=== PATIENT | female | born 1955 | race Caucasian/White ===

== ENCOUNTER → 2020-05-04 10:59 | Outpatient (CLI) | payer MEDICARE, SELFPAY ==
[2020-05-04 12:08] LABS: Add Manual Diff / Slide Review NO; Basophils Absolute Auto 0 /uL (0-100); Basophils Percent Auto 0.6 % (0-2); Eosinophils Absolute Auto 100 /uL (0-450); Eosinophils Percent Auto 1.7 % (2-4); Hematocrit 37.4 % (36-46); Hemoglobin 12.6 g/dL (12.0-16.0); Lymphocytes Absolute Auto 1600 /uL (1100-4500); Lymphocytes Percent Auto 38.6 % (25-40); Mean Corpuscular HGB Conc 33.6 % (30-36); Mean Corpuscular Hemoglobin 30.5 PG (26-34); Monocytes Absolute Auto 400 /uL (0-900); Neutrophils Absolute Auto 2100 /uL (1500-7000); Neutrophils Percent Auto 49.1 % (50-75); Platelet Count 277 X10^3/uL (150-400); Red Blood Cell Count 4.11 X10^6/uL (4.0-5.2); Red Cell Distribution Width 12.8 % (11.6-14.8); White Blood Cell Count 4.3 X10^3/uL (4.5-11.0)
[2020-05-04 13:04] LABS: Alanine Aminotransferase 18 IU/L (<35); Albumin 4.3 g/dL (3.5-5.0); Albumin Globulin Ratio 1.5 (1.0-2.8); Alkaline Phosphatase 57 U/L (38-126); Aspartate Aminotransferase 28 IU/L (14-36); BUN Creatinine Ratio 20.8 (6-22); Bilirubin Total 0.5 mg/dL (0.2-1.3); Blood Urea Nitrogen 15 mg/dL (7-17); Calcium 9.9 mg/dL (8.4-10.2); Carbon Dioxide 31 mmol/L (22-32); Chloride 100 mmol/L (98-107); Cholesterol 220 mg/dL (140-199); Estimated Glomerular Filt Rate > 60.0 mL/min (>60); Globulin 2.8 g/dL (1.7-4.1); Glucose 86 mg/dL (80-110); HDL Cholesterol 87 mg/dL (40-60); HEMOLYSIS < 15 (0-50); LDL Cholesterol Calculated 117 mg/dL (<100); Potassium 4.6 mmol/L (3.4-5.1); Sodium 136 mmol/L (137-145); Total Protein 7.1 g/dL (6.3-8.2); Triglycerides 80 mg/dL (35-150)
[2020-05-04 13:35] LABS: TSH w/ Reflex to FT4 0.11 uIU/mL (0.47-4.68)
[2020-05-04 14:23] LABS: Free T4, Direct Thyroxine 1.13 ng/dL (0.78-2.19)
== END ==
PROVIDERS: PCP Registered Nurse Diabetes Educator; Referring Provider Registered Nurse Diabetes Educator; Visit Provider Registered Nurse Diabetes Educator
DX: Z00.00 Encounter for general adult medical examination without abnormal findings (principal)
CPT/HCPCS: 36415; 80053; 80061; 84439; 84443; 85025

== ENCOUNTER → 2021-02-14 15:07 | Outpatient (CLI) | payer MEDICARE, SELFPAY ==
--- NOTE | 2021-02-14 15:12 | DI.RAD.S_ITS ---
PROCEDURE: XR HIP W PEL IF DONE LT 2V INDICATIONS: eval chronic l hip pain TECHNIQUE: AP pelvis with lateral view(s) of the left hip(s). COMPARISON: None. FINDINGS: Bones: No fractures or dislocations. Very slight left femoroacetabular marginal spurring. Mild spurring inferiorly at both sacroiliac joints. Pelvic ring appears intact. No suspicious bony lesions. Soft tissues: The visualized bowel gas pattern is normal. There is increased quantity of solid stool present. No suspicious soft tissue calcifications. IMPRESSION: 1. Minor left hip degeneration. 2. Mild bilateral sacroiliac joint degeneration. Dictated by: Tashia Tatum M.D. on 02/14/2021 at 16:06 Approved by: Tashia Tatum M.D. on 02/14/2021 at 16:08
== END ==
PROVIDERS: PCP Registered Nurse Diabetes Educator; Referring Provider Registered Nurse Diabetes Educator; Visit Provider Registered Nurse Diabetes Educator
DX: M25.552 Pain in left hip (principal); M46.1 Sacroiliitis, not elsewhere classified
CPT/HCPCS: 73502

== ENCOUNTER → 2021-09-03 12:01 | Outpatient (CLI) | payer MEDICARE, SELFPAY ==
--- NOTE | 2021-09-03 12:04 | DI.RAD.S_ITS ---
PROCEDURE: XR LUMBAR SPINE 2-3V INDICATIONS: eval LBP with LLE radiculopathy TECHNIQUE: 3 views of the lumbar spine were acquired. COMPARISON: None. FINDINGS: Bones: 5 [id number] vertebrae are present. There is mild levoscoliosis centered at L3-4 level. Minimal anterolisthesis of L4 on L5 is seen. Degenerative endplate changes and bilateral facet arthrosis at L3-4 through L5-S1 levels are seen. No vertebral body compression fractures. No suspicious bony lesions. Soft tissues: Overlying bowel gas pattern is normal. No suspicious soft tissue calcifications. IMPRESSION: Mild scoliosis and minimal anterolisthesis of L4 on L5. No acute compression fracture. Degenerative disc disease throughout mid to lower lumbar spine. Dictated by: Robert Coffey M.D. on 09/03/2021 at 15:46 Approved by: Robert Coffey M.D. on 09/03/2021 at 15:47
--- NOTE | 2021-09-03 12:04 | DI.RAD.S_ITS ---
PROCEDURE: XR CERVICAL SPINE 2V OR 3V INDICATIONS: chronic C-spine disease TECHNIQUE: 3 view(s) of the cervical spine were acquired. COMPARISON: None. FINDINGS: Bones: No fractures or dislocations to the T1 level. The lateral masses of C1 appear intact on the odontoid view. Grade 1/2 anterolisthesis at C3-4. Moderate to advanced disc height loss at C4 -7 with prominent bridging anterior endplate osteophytes. Straightening, which may be due to spasm or positioning. Uncovertebral/facet arthrosis, most prominent at C2-3. Soft tissues: No prevertebral soft tissue swelling. IMPRESSION: Cervical spine degeneration as detailed above. Dictated by: Tolu Lynch M.D. on 09/03/2021 at 16:32 Approved by: Tolu Lynch M.D. on 09/03/2021 at 16:35
== END ==
PROVIDERS: PCP Registered Nurse Diabetes Educator; Referring Provider Registered Nurse Diabetes Educator; Visit Provider Registered Nurse Diabetes Educator
DX: M51.16 Intervertebral disc disorders with radiculopathy, lumbar region (principal); M51.17 Intervertebral disc disorders with radiculopathy, lumbosacral region; M47.812 Spondylosis without myelopathy or radiculopathy, cervical region; M41.9 Scoliosis, unspecified
CPT/HCPCS: 72040; 72100

== ENCOUNTER → 2021-10-09 10:32 | Outpatient (CLI) | payer MEDICARE, SELFPAY ==
--- NOTE | 2021-10-09 10:35 | DI.RAD.S_ITS ---
PROCEDURE: XR DEXA AXIAL SKELETON INDICATIONS: reeval osteoporosis COMPARISON: None. FINDINGS: This blank DEXA report has been sent in error by the PACS system. The correct and complete report will be forthcoming in 1-2 days. Thank you for your patience and understanding. Dictated by: Buffy Peralta MD, PhD on 10/09/2021 at 13:39 Approved by: Buffy Peralta MD, PhD on 10/09/2021 at 13:39
== END ==
PROVIDERS: PCP Registered Nurse Diabetes Educator; Referring Provider Registered Nurse Diabetes Educator; Visit Provider Registered Nurse Diabetes Educator
DX: Z13.820 Encounter for screening for osteoporosis (principal); Z78.0 Asymptomatic menopausal state; M85.89 Other specified disorders of bone density and structure, multiple sites
CPT/HCPCS: 77080

== ENCOUNTER → 2023-01-24 | Outpatient (CLI) | payer MEDICARE, SELFPAY ==
--- NOTE | 2023-01-24 10:22 | DI.RAD.S_ITS ---
Bone Density Report Name: SANIA RED Age: 67 Sex: Female Ethnicity: White Date of : 1955 Indication: osteopenia; parental hip fracture; Referring Provider: OLGA HELTON Study: Bone densitometry was performed. Exam Date: January 24, 2023 Accession number: [id number] Bone Density: Region BMD T-score Z-score Classification AP Spine(L1, L2) 1.006 0.2 2.2 Normal Femoral Neck (Left) 0.673 -1.6 0.1 Osteopenia Total Hip (Left) 0.717 -1.8 -0.4 Osteopenia Femoral Neck (Right) 0.690 -1.4 0.3 Osteopenia Total Hip (Right) 0.677 -2.2 -0.7 Osteopenia Total Hip Mean 0.697 -2.0 -0.6 Osteopenia World Health Organization criteria for BMD impression classify patients as: Normal (T-score at or above -1.0), Osteopenia (T-score between -1.0 and -2.5), or Osteoporosis (T-score at or below -2.5). 10-year Fracture Risk(1): Major Osteoporotic Fracture 14% Hip Fracture 2.3% Reported Risk Factors: [place] (), Neck BMD=0.673, BMI=19.7, parental fracture (1) FRAX(R) Version 3.08. Fracture probability calculated for an untreated patient. Fracture probability may be lower if the patient has received treatment. Previous Exams: -- Region Exam Age BMD T-score BMD Change BMD Change Date g/cm2 vs Baseline vs Previous -- AP Spine (L1-L2) 01/24/2023 67 1.006 0.2 -0.005 (-0.5%) -0.005 (-0.5%) 10/09/2021 66 1.011 0.3 Total Hip(Left) 01/24/2023 67 0.717 -1.8 -0.035 (-4.6%)* -0.035 (-4.6%)* 10/09/2021 66 0.751 -1.6 Total Hip(Right) 01/24/2023 67 0.677 -2.2 0.011 (1.7%) 0.011 (1.7%) 10/09/2021 66 0.666 -2.3 -- *Denotes significance at 95% confidence level, LSC for AP Spine = 0.022 g/cm2, LSC for Total Hip = 0.027 g/cm2 Impression: The patient has low bone mass, based on the Right Total Hip T-score. The patient has an estimated ten-year risk of hip fracture of 2.3% and an estimated ten-year risk of major fracture of 14%, based on the WHO FRAX algorithm. The patient has risk factors, including: parental hip fracture. The BMD for the Total Hip(Left) decreased, changing by -4.6% since the last DXA exam. Discussion: BONE DENSITY IS LOW AT ONE OR MORE SKELETAL SITES. This patient's lowest T-score is low at one or more skeletal sites. It meets the World Health Organization's (WHO) criteria for low bone mass (T-score between -1.0 and -2.5). The patient's 10-year risk of fracture as calculated by FRAX is less than the threshold where pharmacological therapy is recommended by the National Osteoporosis Foundation (NOF). However, all treatment decisions require clinical judgment and consideration of individual patient factors, including patient preferences, comorbidities, previous drug use, risk factors not captured in the FRAX model (e.g., frailty, falls, vitamin D deficiency, increased bone turnover, interval significant decline in bone density) and possible under or overestimation of fracture risk by FRAX. The patient should follow a healthful lifestyle (good nutrition with adequate calcium and vitamin D, and appropriate weight-bearing exercise). Follow-Up: Consider repeating this study in 2 years to reassess this patient's status, or sooner if there is some new clinical indication. Reported by: ARELY DAMON M.D. on 01/24/2023 11:02:00 AM.
[2023-01-24 12:20] LABS: Alanine Aminotransferase 18 IU/L (<35); Albumin 4.3 g/dL (3.5-5.0); Albumin Globulin Ratio 1.6 (1.0-2.8); Alkaline Phosphatase 61 U/L (38-126); Aspartate Aminotransferase 26 IU/L (14-36); BUN Creatinine Ratio 17.1 (6-22); Bilirubin Total 0.8 mg/dL (0.2-1.3); Blood Urea Nitrogen 13 mg/dL (7-17); Calcium 9.6 mg/dL (8.4-10.2); Carbon Dioxide 31 mmol/L (22-32); Chloride 99 mmol/L (98-107); Cholesterol 255 mg/dL (140-199); Estimated Glomerular Filt Rate > 60 mL/min (>60); Globulin 2.7 g/dL (1.7-4.1); Glucose 83 mg/dL (80-110); HDL Cholesterol 93 mg/dL (40-60); HEMOLYSIS < 15 (0-50); LDL Cholesterol Calculated 145 mg/dL (<100); Potassium 4.6 mmol/L (3.4-5.1); Sodium 134 mmol/L (137-145); Triglycerides 87 mg/dL (35-150)
[2023-01-24 12:55] LABS: TSH w/ Reflex to FT4 0.02 uIU/mL (0.47-4.68)
[2023-01-24 13:26] LABS: Free T4, Direct Thyroxine 1.11 ng/dL (0.78-2.19)
== END ==
LOC: RAD 10:21
PROVIDERS: PCP Registered Nurse Diabetes Educator; Referring Provider Registered Nurse Diabetes Educator; Visit Provider Registered Nurse Diabetes Educator
DX: M85.851 Other specified disorders of bone density and structure, right thigh (principal); R79.89 Other specified abnormal findings of blood chemistry; Z51.81 Encounter for therapeutic drug level monitoring; Z79.83 Long term (current) use of bisphosphonates; Z90.710 Acquired absence of both cervix and uterus
CPT/HCPCS: 36415; 77080; 80053; 80061; 84439; 84443

== ENCOUNTER → 2023-11-18 10:58 | Outpatient (CLI) | payer MEDICARE, SELFPAY ==
[2023-11-18 12:34] LABS: Alanine Aminotransferase 17 IU/L (<35); Albumin 4.6 g/dL (3.5-5.0); Albumin Globulin Ratio 1.7 (1.0-2.8); Alkaline Phosphatase 60 U/L (38-126); Aspartate Aminotransferase 28 IU/L (14-36); BUN Creatinine Ratio 19.2 (6-22); Bilirubin Total 0.7 mg/dL (0.2-1.3); Blood Urea Nitrogen 14 mg/dL (7-17); Calcium 9.7 mg/dL (8.4-10.2); Carbon Dioxide 31 mmol/L (22-32); Chloride 103 mmol/L (98-107); Cholesterol 247 mg/dL (140-199); Estimated Glomerular Filt Rate > 60 mL/min (>60); Globulin 2.7 g/dL (1.7-4.1); Glucose 81 mg/dL (80-110); HDL Cholesterol 84 mg/dL (40-60); HEMOLYSIS < 15 (0-50); LDL Cholesterol Calculated 145 mg/dL (<100); Potassium 3.9 mmol/L (3.4-5.1); Sodium 137 mmol/L (137-145); Total Protein 7.3 g/dL (6.3-8.2); Triglycerides 89 mg/dL (35-150)
[2023-11-18 12:45] LABS: Free T4, Direct Thyroxine 1.14 ng/dL (0.78-2.19)
[2023-11-18 12:59] LABS: Thyroid Stimulating Hormone 1.15 uIU/mL (0.47-4.68)
== END ==
PROVIDERS: PCP Registered Nurse Diabetes Educator; Referring Provider Registered Nurse Diabetes Educator; Visit Provider Registered Nurse Diabetes Educator
DX: R79.89 Other specified abnormal findings of blood chemistry (principal); E78.5 Hyperlipidemia, unspecified
CPT/HCPCS: 36415; 80053; 80061; 84439; 84443; 84480

== ENCOUNTER → 2024-02-23 11:02 | Outpatient (CLI) | payer MEDICARE, SELFPAY ==
--- NOTE | 2024-02-23 11:03 | DI.MG.S_ITS ---
BILATERAL DIGITAL SCREENING MAMMOGRAM 3D/2D WITH CAD: 02/23/2024 CLINICAL: Routine screening. Comparison is made to exams dated: 01/01/2023 mammogram, 10/10/2021 mammogram, and 06/06/2020 mammogram - [facility]. Both breasts are heterogeneously dense, which may obscure small masses (category c / 51-75% glandular tissue). Current study was also evaluated with a Computer Aided Detection (CAD) system. No significant masses, calcifications, or other findings are seen in either breast. There has been no significant interval change. IMPRESSION: NEGATIVE There is no mammographic evidence of malignancy. A 1 year screening mammogram is recommended. Based on the Tyrer Cuzick model (a risk assessment model) the patient's lifetime risk is 6.1% and her 10 year risk is 3.9%. According to the ACR, ACS, and NCCN guidelines, an annual breast MRI exam along with mammogram is recommended if the patient's lifetime risk is 20% or greater. This exam was interpreted at Station ID: [id number]. NOTE: For mammograms, a report in lay terms will be sent to the patient. Approximately 15% of breast malignancies will not be visualized mammographically. In the management of a palpable breast mass, a negative mammogram must not discourage biopsy of a clinically suspicious lesion. Electronically Signed By: Cam goodman/ole:02/23/2024 14:27:09 letter sent: Normal Exam ACR BI-RADS Category 1: Negative [id number]
== END ==
PROVIDERS: PCP Registered Nurse Diabetes Educator; Referring Provider Registered Nurse Diabetes Educator; Visit Provider Registered Nurse Diabetes Educator
DX: Z12.31 Encounter for screening mammogram for malignant neoplasm of breast (principal); R92.333 Mammographic heterogeneous density, bilateral breasts
CPT/HCPCS: 77063; 77067

== ENCOUNTER → 2024-05-26 15:40 | Outpatient (CLI) | payer MEDICARE, SELFPAY ==
--- NOTE | 2024-05-26 15:42 | DI.RAD.S_ITS ---
PROCEDURE: XR KNEE LT 3V INDICATIONS: pain and swelilng x 1.5 week, knee buckled TECHNIQUE: 3 views of the knee were acquired. COMPARISON: None. FINDINGS: Bones: No fractures or dislocations. Mild tricompartmental osteoarthritis is seen more notably in medial femoral tibial compartment. No significant patellar subluxation. No suspicious bony lesions. Soft tissues: Small to moderate joint effusion. No suspicious soft tissue calcifications. IMPRESSION: No acute left knee fracture or dislocation. Mild tricompartmental osteoarthritis. Small to moderate joint effusion. Dictated by: Robert Coffey M.D. on 05/26/2024 at 17:10 Approved by: Robert Coffey M.D. on 05/26/2024 at 17:11
== END ==
PROVIDERS: PCP Registered Nurse Diabetes Educator; Referring Provider Physician Assistant; Visit Provider Physician Assistant
DX: M17.12 Unilateral primary osteoarthritis, left knee (principal); S86.919A Strain of unspecified muscle(s) and tendon(s) at lower leg level, unspecified leg, initial encounter; M25.462 Effusion, left knee; X58.XXXA Exposure to other specified factors, initial encounter
CPT/HCPCS: 73562

== ENCOUNTER → 2024-11-29 10:35 | Outpatient (CLI) | payer MEDICARE, SELFPAY ==
[2024-11-29 11:54] LABS: Alanine Aminotransferase 19 IU/L (<35); Albumin 4.8 g/dL (3.5-5.0); Albumin Globulin Ratio 2.1 (1.0-2.8); Alkaline Phosphatase 68 U/L (38-126); Aspartate Aminotransferase 30 IU/L (14-36); BUN Creatinine Ratio 17.1 (6-22); Bilirubin Total 0.6 mg/dL (0.2-1.3); Blood Urea Nitrogen 13 mg/dL (7-17); Carbon Dioxide 28 mmol/L (22-32); Chloride 100 mmol/L (98-107); Cholesterol 267 mg/dL (140-199); Estimated Glomerular Filt Rate > 60 mL/min (>60); Globulin 2.3 g/dL (1.7-4.1); Glucose 86 mg/dL (70-99); HDL Cholesterol 95 mg/dL (40-60); HEMOLYSIS < 15 (0-50); LDL Cholesterol Calculated 151 mg/dL (<100); Potassium 4.6 mmol/L (3.4-5.1); Sodium 134 mmol/L (137-145); Total Protein 7.1 g/dL (6.3-8.2); Triglycerides 103 mg/dL (35-150)
[2024-11-29 12:09] LABS: Free T4, Direct Thyroxine 1.11 ng/dL (0.78-2.19)
[2024-11-29 12:23] LABS: Thyroid Stimulating Hormone 1.24 uIU/mL (0.47-4.68)
== END ==
PROVIDERS: PCP Registered Nurse Diabetes Educator; Referring Provider Registered Nurse Diabetes Educator; Visit Provider Registered Nurse Diabetes Educator
DX: E78.5 Hyperlipidemia, unspecified (principal); R79.89 Other specified abnormal findings of blood chemistry; M81.0 Age-related osteoporosis without current pathological fracture
CPT/HCPCS: 36415; 80053; 80061; 84439; 84443; 84481

== ENCOUNTER → 2025-03-29 11:31 | Outpatient (CLI) | payer MEDICARE, SELFPAY ==
[2025-03-29 12:32] LABS: Cholesterol 191 mg/dL (140-199); HDL Cholesterol 101 mg/dL (40-60); Triglycerides 65 mg/dL (35-150)
== END ==
PROVIDERS: PCP Registered Nurse Diabetes Educator; Referring Provider Registered Nurse Diabetes Educator; Visit Provider Registered Nurse Diabetes Educator
DX: E78.5 Hyperlipidemia, unspecified (principal)
CPT/HCPCS: 36415; 80061

== ENCOUNTER → 2025-03-30 12:10 | Outpatient (CLI) | payer MEDICARE, SELFPAY ==
--- NOTE | 2025-03-30 12:11 | DI.RAD.S_ITS ---
PROCEDURE: XR DEXA AXIAL SKELETON INDICATIONS: Re eval COMPARISON: [facility], CR, XR DEXA AXIAL SKELETON, 01/24/2023, 10:39. FINDINGS: Lumbar Spine: Bone mineral density 0.990 (previously 1.006) g/cm2, T score 0.1 (previously 0.2). Left Femoral Neck: Bone mineral density 0.663 (previously 0.673) g/cm2, T score -1.7 (previously -1.6). Left Hip: Bone mineral density 0.659 (previously 0.717) g/cm2, T score -2.3 (previously -1.8). Fracture Risk Calculation (when applicable): 10-year fracture risk of a major osteoporotic fracture 14 percent and of a hip fracture 4.1 percent. (T score greater or equal to -1.0 to: NORMAL) (T score from -1.1 to -2.4: OSTEOPENIA) (T score less than or equal to -2.5: OSTEOPOROSIS) IMPRESSION: Osteopenia--- recommend repeat DEXA in 2-3 years for reassessment. Follow-up guidelines as follows: Osteoporosis: Consider a repeat DEXA and Vertebral Fracture Assessment (VFA) exam in 2 years or sooner if medically necessary, to reassess this patient's status. Osteopenia: Consider a repeat DEXA in 2-3 years to reassess this patient's status, or if there is a new clinical indication. Normal: Consider a repeat DEXA in 5 years or sooner, or if there is a new clinical indication. All treatment decisions require clinical judgment and consideration of individual patient factors, including patient preferences, comorbidities, previous drug use, risk factors not captured in the FRAX model (e.g., frailty, falls, vitamin D deficiency, increased bone turnover, interval significant decline in bone density ) and possible under- or over-estimation of fracture risk by FRAX. In addition, the NOF Guide recommends that FDA-approved medical therapies be considered in postmenopausal women and men age >= 50 years with a: * Hip or vertebral (clinical or morphometric) fracture * T-score of <=-2.5 at the spine or hip * Ten-year fracture probability by FRAX of >= 3% for hip fracture or >=20% for major osteoporotic fracture. Dictated by: Leonardo Licona M.D. on 03/30/2025 at 19:17 Approved by: Leonardo Licona M.D. on 03/30/2025 at 19:21
== END ==
LOC: RAD 12:11
PROVIDERS: PCP Registered Nurse Diabetes Educator; Referring Provider Registered Nurse Diabetes Educator; Visit Provider Registered Nurse Diabetes Educator
DX: M85.89 Other specified disorders of bone density and structure, multiple sites (principal)
CPT/HCPCS: 77080

== ENCOUNTER → 2025-05-25 14:30 | Outpatient (CLI) | payer MEDICARE, SELFPAY ==
--- NOTE | 2025-05-25 14:30 | DI.MG.S_ITS ---
MM screening mammo BI: 05/25/2025. BI-RADS: 1
== END ==
LOC: MAMMO 14:30
PROVIDERS: PCP Registered Nurse Diabetes Educator; Referring Provider Registered Nurse Diabetes Educator; Visit Provider Registered Nurse Diabetes Educator
DX: Z12.31 Encounter for screening mammogram for malignant neoplasm of breast (principal); R92.333 Mammographic heterogeneous density, bilateral breasts
CPT/HCPCS: 77063; 77067